=== PATIENT | female | born 1960 | race Caucasian/White ===

== ENCOUNTER 2020-08-07 10:00 | Outpatient (CLI) | payer OTHER, SELFPAY | END 2020-08-07 23:59 | disposition home or self-care (01) | LOC: MLB 10:00 → EDSTATUS 08-15 14:03 | PROVIDERS: ATTEND Internal Medicine Gastroenterology | DX: Z01.812 Encounter for preprocedural laboratory examination (principal); K70.30 Alcoholic cirrhosis of liver without ascites; Z20.822 Contact with and (suspected) exposure to COVID-19 | CPT/HCPCS: U0003 ==